=== PATIENT | male | born 1945 | race Caucasian/White ===

== ENCOUNTER 2016-09-24 08:43 | Emergency (ER) | payer BC, MEDICARE ==
--- NOTE | 2016-09-24 09:16 | ER PHYSICIAN DOCUMENTATION ---
Physician Documentation [facility] Name:Benjie Duncan Age:71 yrs Sex:Male :1945 Arrival Date:09/24/2016 Time:08:43 Bed2 Private MD: Urbano Mccloud Disposition: 09/24/16 09:07 Discharged to Home/Self Care. Impression: Abscess Tooth. - Condition is Good. - Discharge Instructions: DENTAL ABSCESS. - Prescriptions for penicillin V potassium 500 mg Oral tablet - take 1 tablet by ORAL route 4 times per day; 40 tablet. Hydrocodone- Acetaminophen 7.5-325 mg Oral - take 1 tablet by ORAL route every 4 hours As needed; 30 tablet. - Medical Reconciliation form form. - Follow up: Private Physician; When: Upon discharge from the Emergency Department; Reason: Recheck today's complaints, Continuance of care. - Problem is chronic. - Symptoms have worsened. HPI: 09/24 09:12 This 71 yrs old Male presents to ER via Private Vehicle with complaints of be DENTAL PROBLEM. 09:12 The patient presents with broken tooth/teeth, pain, that is acute, swelling. The be problem is located in the lower left first molar and left jaw. Onset: The symptom(s)/episode began/occurred acutely, this morning. The patient has experienced a previous episode, and the symptoms today are exactly the same. Historical: - Allergies: No known drug Allergies; - Home Meds: 1. None - PMHx: cancer throat; - PSHx: KNEE SURGERY; HERNIA REPAIR; Tonsillectomy; - Tetanus: > 10 years. - Ebola Screening: : Patient denies exposure to infectious person. Patient denies travel to an Ebola-affected area in the 21 days before illness onset. . - Immunization history: Unable to Obtain. - Social history: Smoking status: Patient states was never smoker of tobacco. Patient uses alcohol only on a social basis. Patient/guardian denies using marijuana. ROS: 09:13 ENT: Positive for dental pain. be 09:13 All other systems are negative. Exam: 09:13 Constitutional: This is a well developed, well nourished patient who is awake, alert, be and in acute distress. Head/Face: Normocephalic, atraumatic, moderate left mandibular STS ENT: Nares patent. No nasal discharge, no septal abnormalities noted. Tympanic membranes are normal and external auditory canals are clear. Oropharynx with redness, swelling, and mandibular kimberly, large jesse #19 w/ gingival swelling, but no exudates, or evidence of obstruction, uvula midline. Mucous membranes moist. 09:13 Neck: Trachea midline, no thyromegaly or masses palpated, and no cervical be lymphadenopathy. Supple, full range of motion without nuchal rigidity, or vertebral point tenderness. No Meningismus. 09:13 ENT: Mouth: Gums: reddened, swollen, on the lower left first molar, Dental exam: fractured teeth are noted, specifically the lower left first molar (#19). Vital Signs: 09:04 BP 122 / 76; Pulse 76; Temp 98.2; Pulse Ox 98% on R/A; Pain 3/10; st Procedures: 09:13 Nerve block: of left inferior alveolar nerve, Medication: Lidocaine 2% with be epinephrine, Amount: 3 mls were injected, Effect: the patient's symptoms are improved, moderately, Performed by Urbano Peraza MD Patient tolerated well. MDM: 08:54 Patient medically screened. be 09:13 Differential diagnosis: dental caries, gingivitis, dental abscess, gingivostomatitis. be Data reviewed: vital signs, nurses notes, and as a result, I will discharge patient, administer antibiotics PenVK, prescribe pain medication, hydrocodone. Dispensed Medications: No medications were administered Signatures: Angie Elise RN Inessa Calvin RN RN sc1 Urbano Peraza MD MD be
--- NOTE | 2016-09-24 09:16 | ER NURSING DOCUMENTATION ---
Nurse's Notes [facility] Name:Benjie Duncan Age:71 yrs Sex:Male :1945 Arrival Date:09/24/2016 Time:08:43 Bed2 Private MD: Diagnosis:Abscess Tooth Presentation: 09/24 08:56 Acuity: ARTURO 4 st 09:01 Presenting complaint: Patient states: pt has swelling to the left side of his face. pt st states he has meany dental problems and feels that this is related. Swelling started this AM. Transition of care: patient was not received from another setting of care. 09:01 Method Of Arrival: Private Vehicle st Triage Assessment: 09:02 General: Appears in no apparent distress, Behavior is cooperative. Pain: Complains of st pain in left jaw Pain currently is 2 out of 10 on a pain scale. EENT: Poor dentition noted. Musculoskeletal: Swelling present in left jaw. Historical: - Allergies: No known drug Allergies; - Home Meds: 1. None - PMHx: cancer throat; - PSHx: KNEE SURGERY; HERNIA REPAIR; Tonsillectomy; - Tetanus: > 10 years. - Ebola Screening: : Patient denies exposure to infectious person. Patient denies travel to an Ebola-affected area in the 21 days before illness onset. . - Immunization history: Unable to Obtain. - Social history: Smoking status: Patient states was never smoker of tobacco. Patient uses alcohol only on a social basis. Patient/guardian denies using marijuana. Screenin:05 Infectious Disease Risk None. Abuse screen: Denies threats or abuse. Denies injuries st from another. pt feels safe at home. Nutritional screening: No deficits noted. Vital Signs: 09:04 BP 122 / 76; Pulse 76; Temp 98.2; Pulse Ox 98% on R/A; Pain 3/10; st ED Course: 08:46 Patient arrived in ED. ama 08:54 Urbano Peraza MD is Attending Physician. be 08:56 Angie Elise RN is Primary Nurse. st 08:[address] 09:06 Valuables Remains with patient Patient has correct armband on for positive st identification. Bed in low position. Administered Medications: No medications were administered Outcome: 09:07 Discharge ordered by . be 09:15 Discharged to home ambulatory. sc1 09:15 Condition: improved 09:15 Discharge instructions given to patient, Instructed on discharge instructions, follow up and referral plans. medication usage, Demonstrated understanding of instructions, medications, Prescriptions given X 2. 09:15 Patient left the ED. [facility] [place] 09/25 09:20 Discharge F/U Call: Spoke with: spouse with permission of patient. other: Name: pt st has not seen any improvement yet. pt has had two doses of abx. pt was told that I would not expect much change yet but that he should see some improvement in the next 24 hours. pt had no other questions or concerns. Signatures: Angie Elise, RN RN st Inessa Sheldon RN RN sc1 Urbano Peraza MD MD be Averdick, Andrew, Andrew Reg ama
== END 2016-09-24 09:16 | disposition home or self-care (01) ==
LOC: ER 08:43
DX: K04.7 Periapical abscess without sinus (principal); K03.81 Cracked tooth; K02.9 Dental caries, unspecified; Z85.819 Personal history of malignant neoplasm of unspecified site of lip, oral cavity, and pharynx
CPT/HCPCS: 99281